=== PATIENT | male | born 1975 | race African-American/Black ===

== ENCOUNTER 2021-02-12 12:13 | Emergency (ER) | payer OTHER ==
[~2021-02-12] VITALS: Ht 166.4 cm; Wt 110.8 kg
[2021-02-12] MEDS ORDERED: PRINIVIL10 MG PO (12:25)
[2021-02-12] MEDS ORDERED: ALLERGY RELIEF10 M4 PO (12:26)
[2021-02-12] MEDS ORDERED: ALLO300T23 PO (12:26)
[2021-02-12] MEDS ORDERED: ASPIRIN 81 LOW81 MG PO (12:26)
[2021-02-12 13:51] VITALS: BP 126/71; TEMP 100
== END 2021-02-12 13:51 | disposition home or self-care (01) ==
LOC: ED 12:13
DX: U07.1 COVID-19 (principal); J18.8 Other pneumonia, unspecified organism; J06.9 Acute upper respiratory infection, unspecified
CPT/HCPCS: 87635; 87651; 96372; 99283; J1100; U0003